=== PATIENT | male | born 1970 | race American Indian/Alaskan Native ===

== ENCOUNTER 2018-08-25 10:51 | Day surgery (SDC) | payer MEDICAID ==
[~2018-08-25 10:51] MED LIST: NACL 0.9% 1000 ML 1,000 ML IV SCH
[2018-08-25 12:54] LABS: Basophils % (Auto) 0.6 % (0.0-1.8); Eosinophils # (Auto) 0.5 K/mm3 (0.0-0.4); Eosinophils % (Auto) 6.7 % (0.0-4.3); Hematocrit 28.4 % (35.5-45.6); Hemoglobin 9.4 gm/dl (11.8-15.2); Lymphocytes # (Auto) 0.6 K/mm3 (1.2-5.4); Lymphocytes % (Auto) 8.1 % (13.4-35.0); Mean Corpuscular HGB Conc 33 % (32-34); Mean Corpuscular Volume 94 fl (84-94); Monocytes # (Auto) 0.4 K/mm3 (0.0-0.8); Monocytes % (Auto) 5.7 % (0.0-7.3); Platelet Count 164 K/mm3 (140-440); Red Blood Count 3.03 M/mm3 (3.65-5.03); Red Cell Distribution Width 15.9 % (13.2-15.2)
[2018-08-25 13:05] LABS: Calcium 9.2 mg/dL (8.4-10.2)
[2018-08-25 14:37] LABS: INR 1.15 (0.87-1.13)
--- NOTE | 2018-08-25 14:40 | Short Stay Summary ---
Short Stay Documentation Date of service: 08/25/18 Narrative H&P: The patient is a 48-year-old with a history of end-stage renal disease who has a failing left upper extremity arteriovenous fistula that has had multiple interventions and despite that has continued to increase in size and develop thrombus and tortuosity of the fistula. He is beginning to have significant pain over the fistula secondary to the decreased outflow and increased pressure in the fistula. He is now receiving dialysis through a right internal jugular permacath and desires revision versus excision of the fistula. - History Principal diagnosis: Complications of Dialysis Access Past Medical History: anemia, CAD, ESRD, heart failure, hypertension Past Surgical History: Other (left arm arteriovenous fistula, multiple endovascular interventions, permacath insertions) - Allergies and Medications Current Medications: Allergies lidocaine Allergy (Verified 08/24/18 14:12) Itching Active Medications Sodium Chloride (Nacl 0.9% 1000 Ml) 1,000 mls @ 42 mls/hr IV DIRECT J CARLOS Last Admin: 08/25/18 12:10 Dose: 42 mls/hr Documented by: - Physical exam General appearance: no acute distress Lungs: Clear to auscultation Heart: Regular rate Male Genitourinary: deferred Rectal Exam: deferred Extremities: no ischemia, abnormal (left arm arteriovenous fistula pulsatile with diminished thrill skin overlying the fistula is thin and shiny patient has tenderness over the fistula there is no erythema or fluctuance) - Brief post op/procedure progress note Date of procedure: 08/25/18 Pre-op diagnosis: Complications of Dialysis Access Post-op diagnosis: same Procedure: 1. Excision of Left Arm Arteriovenous Fistula 2. Creation of Left Brachial Artery to Axillary Vein AV Graft With 7 mm Bovine Graft Anesthesia: GETA Surgeon: RITA KO Estimated blood loss: other (300 ml) Pathology: list (left arm arteriovenous fistula) Specimen disposition: to lab (sent to pathology) Condition: stable - Disposition Condition at discharge: Good Disposition: [id number] TO HOME OR SELFCARE Short Stay Discharge Plan Activity: other (no heavy lifting with left arm for 2 weeks) Wound: open to air, keep clean and dry, other (okay to wash the wound with soap and water but do not soak in water) Follow up with: RITA KO MD [Staff Physician] - 14 Days Prescriptions: HYDROcodone/APAP 7.5-325 [[place] 7.5/325] 1 each PO Q6HR PRN #40 tablet PRN Reason: Pain
[2018-08-25] MEDS ORDERED: MARCAINE 0.5% INFILTRATI ONE ×2 (15:10→16:30)
[2018-08-25] MEDS ORDERED: XYLOCAINE 1% 20 mL ONE (15:10)
[2018-08-25] MEDS ORDERED: NACL 0.9% 500 ML 500 ML ONE (15:11)
[2018-08-25] MEDS ORDERED: HEPARIN 10,000 UNITS/10 ML ONE (15:11)
[2018-08-25] MEDS ORDERED: RIFADIN ONE (15:14)
[2018-08-25] MEDS ORDERED: SUBLIMAZE ONE ×2 (15:15→17:38)
[2018-08-25] MEDS ORDERED: QUELICIN ONE (15:15)
[2018-08-25] MEDS ORDERED: DIPRIVAN 10 MG/ML IV ONE ×2 (15:16→15:42)
[2018-08-25] MEDS ORDERED: ZEMURON IV ONE (16:12)
[2018-08-25] MEDS ORDERED: XYLOCAINE MPF 2% ONE (16:12)
[2018-08-25] MEDS ORDERED: NEO SYNEPHRINE/NS Syringe(OR USE) IV ONE (16:12)
[2018-08-25] MEDS ORDERED: ANCEF ONE (16:21)
[2018-08-25] MEDS ORDERED: RIFADIN IV ONE (16:30)
[2018-08-25] MEDS ORDERED: HEPARIN 10,000 UNITS/10 ML IV ONE (16:30)
[2018-08-25] MEDS ORDERED: DECADRON ONE (16:43)
[2018-08-25] MEDS ORDERED: ZOFRAN ONE (16:43)
--- NOTE | 2018-08-25 16:54 | Anesthesia Consultation ---
Anesthesia Consult and Med Hx - Airway Anesthetic Teeth Evaluation: Poor (loose upper and lower incisors) ROM Head & Neck: Adequate Mental/Hyoid Distance: Adequate Mallampati Class: Class III Intubation Access Assessment: Possibly Difficult - Pulmonary Exam CTA: Yes - Cardiac Exam Cardiac Exam: RRR - Pre-Operative Health Status ASA Pre-Surgery Classification: ASA3 Proposed Anesthetic Plan: General - Pulmonary Hx Sleep Apnea: Yes - Cardiovascular System Hx Hypertension: Yes - Central Nervous System Hx Psychiatric Problems: Yes (Itches when gets nervous) - Endocrine Hx Renal Disease: Yes Hx End Stage Renal Disease: Yes - Hematic Hx Anemia: Yes - Other Systems Hx Alcohol Use: Yes (Weekends) Hx Cancer: No Hx Obesity: Yes - Additional Comments Anesthesia Medical History Comments: Patient with ESRD on HD, HTN, OBESITY for GA
[2018-08-25] MEDS ORDERED: ZOFRAN IV PRN (16:55)
[2018-08-25] MEDS ORDERED: DILAUDID IV PRN (16:55)
--- NOTE | 2018-08-25 16:55 | Anesthesia Day of Surgery ---
Anesthesia Day of Surgery - Day of Surgery Patient Examined: Yes Patient H&P Reviewed: Yes Patient is NPO: Yes
[2018-08-25] MEDS ORDERED: NACL P/F VIAL (10 ML) 10 ML ONE (17:33)
[2018-08-25] MEDS ORDERED: NACL 0.9% 500 ML 500 ML IV ONE (17:38)
[2018-08-25] MEDS ORDERED: PROAIR IH ONE (18:16)
[2018-08-25] MEDS ORDERED: BLOXIVERZ ONE (18:34)
[2018-08-25] MEDS ORDERED: ROBINUL ONE (18:34)
--- NOTE | 2018-08-25 20:01 | Operative Report ---
Operative Report Operative Report: Date of Procedure: 08/25/2018 Pre-operative Diagnosis: Complications of Dialysis Access Post-operative Diagnosis: Same Procedure(s): 1. Excision of Left Arm Arteriovenous Fistula 2. Creation of Left Brachial Artery to Axillary Vein AV Graft With 7 mm Bovine Graft Surgeon: Malik Martínez M.D. Rubber Covering Machine Operator: None Anesthesia: Gen. Endotracheal Anesthesia EBL: 300 mL Counts: Correct Complications: None Condition: Stable Findings: Successful creation of left arm arteriovenous graft with palpable thr ill at the completion the case. Specimen: Left arm arteriovenous fistula sent to pathology. Indication: The patient is a 48-year-old male with history of end-stage renal disease who had a left brachiocephalic arteriovenous fistula that had become a major fistula secondary to a prolonged untreated outflow stenosis. The fistula now had a significant amount of thrombus it was unable to be used. He had placement of a permacath and now needs creation of a left arm AV graft however he will require excision of the fistula secondary to its size and tortuosity. He was given the risks, benefits, and alternative procedures and consented to the procedure. Description of Procedure: The patient was brought to the operating room and laid in supine position. After general endotracheal anesthesia was achieved, prepped and draped in normal sterile fashion. A timeout was performed to correctly identify the right surgical site. I then made a transverse incision just below the antecubital cre ase through her previous incision and carried this down to the arterial inflow the fistula. I dissected this portion of the fistula circumferentially and controlled with a vessel loop. I then dissected out the entire portion of the fistula within the incision circumferentially. I made a longitudinal incision centered over the fistula extending from the upper arm to just above the antecubital crease and carried this down to the fistula and dissected out all portions of the fistula within that incision circumferentially. Once I did this I suture ligated and divided the venous outflow of the fistula with a 0 silk. I then dissected out the portion of the fistula under this skin bridge between the upper arm incision and the antecubital crease incision. Once this portion had been dissected free I clamped the arterial inflow the incision with a DeBakey clamp and then ligated the distal portion of the fistula and pass it off. Of note the remaining portion of the fistula was of normal caliber approximately 7 mm in diameter so I chose to use this as the arterial inflow instead of dissecting down to the brachial artery. I used a combination of quick clot and cautery to achieve hemostasis in the upper arm incision. Once hemostasis was achieved I transected the redundant skin and then anesthetized the incision with 0.5% Marcaine. The incision was then closed in 3 layers using a 2-0 Vicryl in running fashion to reapproximate the deep layer, 3-0 Vicryl in a running fashion to reapproximate the deep dermal layer, and a 4 Monocryl in a running fashion the subcuticular layer. I then made a longitudinal incision on the medial aspect of the upper arm near the axillary crease and carried this down to the axillary vein using sharp dissection. I dissected out the axillary vein cir cumferentially and then controlled this with a vessel loop. I used a Alejandra-Wick tunneler to tunnel from the antecubital crease incision to the axillary crease incision and then tied the bovine graft to the tunneler with a 2-0 silk. I then pulled it through the tunnel and clamped one in and infused with saline to ensure that it was not kinked or twisted. Once I assured that the graft was in adequate position without kinks or twist I beveled the end and then beveled the end of the remaining portion of the fistula and created an end-to-end anastomosis between the graft and the arterial inflow the fistula using 2 6-0 Prolene in a running fashion. After completing the anastomosis I clamped the venous end of the graft and released the clamp on the fistula allowing flow into the graft and it was adequate seal of the anastomosis. I then cut the graft to length and used a Satinsky clamp to clamp the axillary vein. I created a venotomy using an 11 blade and Ibrahim scissors and then created an end-to-side anastomosis using a 6-0 Prolene in running fashion. Prior to completing the anastomosis I flushed the vein as well as the graft by releasing the DeBakey clamp and then reclamped the graft as well as the vein. I completed the anastomosis and released all clamps allowing flow into the graft which had a palpable thrill. Hemostasis within both wounds was achieved with a combination of quick clot and cautery. Once hemostasis was achieved anesthetized the wounds with 0.5% Marcaine and then closed them in 2 layers using 3-0 Vicryl in a running fashion and the deep dermal layers and 4-0 Monocryl in running fashion and subcuticular layers. All wounds were then dressed with Dermabond. The patient tolerated the procedure well. All sponge, needle, instrument count were correct. The patient was transported to the recovery area in stable condition.
[2018-08-25] MEDS ORDERED: NORCO 7.5/325 PO PRN (20:11)
[2018-08-25 21:17] VITALS: BP 151/95
== END 2018-08-25 21:15 | disposition home or self-care (01) ==
LOC: OR 10:51
PROVIDERS: ATTEND Surgery Vascular Surgery
DX: T82.898A Other specified complication of vascular prosthetic devices, implants and grafts, initial encounter (principal); I13.2 Hypertensive heart and chronic kidney disease with heart failure and with stage 5 chronic kidney disease, or end stage renal disease; N18.6 End stage renal disease; I50.9 Heart failure, unspecified; G47.30 Sleep apnea, unspecified; E66.9 Obesity, unspecified; Z79.899 Other long term (current) drug therapy; Z68.42 Body mass index [BMI] 45.0-49.9, adult; Z72.89 Other problems related to lifestyle; Z98.890 Other specified postprocedural states; Z86.2 Personal history of diseases of the blood and blood-forming organs and certain disorders involving the immune mechanism; Z88.8 Allergy status to other drugs, medicaments and biological substances; Y83.8 Other surgical procedures as the cause of abnormal reaction of the patient, or of later complication, without mention of misadventure at the time of the procedure; Y92.89 Other specified places as the place of occurrence of the external cause
CPT/HCPCS: 36415; 36833; 80048; 85025; 85610; 86850; 86900; 86901; 86920; 88304; C1757; J0330; J0690; J1100; J1170; J1644; J2370; J2405; J2704; J2710; J3010; J3490; J7030; J7040